=== PATIENT | male | born 1935 | race Caucasian/White ===

== ENCOUNTER → 2018-03-04 | Outpatient (CLI) | payer MEDICARE ==
[2015-11-05 19:45] VITALS: BP 151/92
[~2018-03-04] MED LIST: LEVO500T59 PO; TAMS0.4C97 PO
--- NOTE | 2018-03-04 16:08 | KCIC ---
Examination: Ultrasound kidneys HISTORY: History of urinary retention, bladder obstruction. COMPARISON: 03/09/2016 FINDINGS: The right kidney measures 12.9 x 5.6 x 4.2 cm. The left kidney measures 12.6 x 5.1 x 4.8 cm. No evidence of hydronephrosis. The urinary bladder is not distended as patient just voided IMPRESSION: Unremarkable exam. Electronically signed by: Thai Cowan MD (03/04/2018 4:05 PM) [place] [id number]
== END | disposition home or self-care (01) ==
LOC: KCIC US 14:25
PROVIDERS: ATTEND Urology
DX: N32.0 Bladder-neck obstruction (principal); R33.8 Other retention of urine
CPT/HCPCS: 76770

== ENCOUNTER → 2019-03-15 | Outpatient (CLI) | payer MEDICARE ==
[2015-11-05 19:45] VITALS: BP 151/92
--- NOTE | 2019-03-17 19:30 | RESP ---
DATE OF SERVICE: 03/17/2019 ATTENDING PHYSICIAN: Kimberley Tomlinson MD The patient underwent full pulmonary function testing dated 03/15/2019. The FEV1 to FVC ratio was 82%. FEV1 was 2.8 liters at 85% of predicted, FVC was 79% of predicted 2.52 liters. Total lung capacity was 7.60 at 135% of predicted. Residual volume was elevated. Diffusion capacity was decreased. IMPRESSION: 1. No significant airflow limitation. 2. Residual volume elevated compatible with air trapping. 3. Diffusion capacity decreased at 67% of predicted. 4. Total lung capacity normal. LUCIAN ROWAN MD DR: MAY/perez JOB#: [id number] / [id number]
== END | disposition home or self-care (01) ==
LOC: PF 09:45
PROVIDERS: ATTEND Internal Medicine
DX: R06.02 Shortness of breath (principal)
CPT/HCPCS: 94010; 94729

== ENCOUNTER → 2020-09-10 | Outpatient (CLI) | payer MEDICARE ==
[2015-11-05 19:45] VITALS: BP 151/92
--- NOTE | 2020-09-10 11:33 | KCIC ---
EXAM: Chest, 2 views. HISTORY: Dyspnea on exertion. COMPARISON: None. FINDINGS: 2 views of the chest are obtained. There is diffuse interstitial infiltrate. There is right greater than left pleural thickening or trace pleural effusions. 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 There are degenerative changes throughout the visualized spine. IMPRESSION: 1. Diffuse interstitial infiltrate. 2. Cardiomegaly. 3. Bilateral pleural thickening or trace pleural effusions. Electronically signed by: Carol Santamaria MD (09/10/2020 11:30 AM) [id number]
== END ==
LOC: KCIC 11:13
PROVIDERS: ATTEND Internal Medicine
DX: R91.8 Other nonspecific abnormal finding of lung field (principal); I51.7 Cardiomegaly
CPT/HCPCS: 71046